=== PATIENT | male | born 1975 ===

== ENCOUNTER 2017-10-24 06:51 | Emergency (ER) | payer MEDICAID, OTHER, SELFPAY ==
[2017-10-24 06:52] VITALS: BMI 34.4
--- NOTE | 2017-10-24 08:02 | C.PDOC ---
History Of Present Illness 42 year old male patient presents to the ER with c/o 'cyst' on his medial left upper thigh for 2 days. Patient states he tried popping it and pus came out, but now hard with no drainage. Patient denies chest pain, SOB and fever. c/o firm non tender vein in back of left calf s/p injury to area recently. Time Seen by Provider: 10/24/17 07:23 Chief Complaint (Nursing): Abnormal Skin Integrity History Per: Patient History/Exam Limitations: no limitations Onset/Duration Of Symptoms: Days (x2) Current Symptoms Are (Timing): Still Present Location Of Injury: Left: Thigh (medial upper) Past Medical History Reviewed: Historical Data, Nursing Documentation, Vital Signs Vital Signs: Last Vital Signs Temp 98.6 F 10/24/17 08:42 Pulse 60 10/24/17 08:42 Resp 18 10/24/17 08:42 BP 127/80 10/24/17 08:42 Pulse Ox 98 10/26/17 08:13 - [facility] Procedures APPLICATION OF SPLINT (09/09/13) CLOSURE SKIN & SUBCUTANEOUS NEC (03/10/13) TETANUS TOXOID ADMINIST (07/15/13) Family History: States: No Known Family Hx - Social History Hx Tobacco Use: No Hx Alcohol Use: No Hx Substance Use: Yes - Immunization History Hx Tetanus Toxoid Vaccination: Yes Hx Influenza Vaccination: No Hx Pneumococcal Vaccination: No Review Of Systems Constitutional: Negative for: Fever Cardiovascular: Negative for: Chest Pain Respiratory: Negative for: Shortness of Breath Skin: Positive for: Other (cyst on left upper medial thigh) Physical Exam - Physical Exam Appears: Non-toxic, No Acute Distress Skin: Warm, Dry, Other (1 cm firm, tender, non fluctuant mass to left upper medial thigh, no drainage, minimal surroumding erythema. ) Head: Atraumatic, Normacephalic Eye(s): bilateral: PERRL, EOMI Oral Mucosa: Moist Cardiovascular: Rhythm Regular, No Murmur Respiratory: Normal Breath Sounds, No Rales, No Rhonchi, No Wheezing Extremity: Normal ROM, No Tenderness, No Pedal Edema (firm vein about 3 cm in left posterior upper calf, non tender, no surrounding swelling or warmth. neg homans sign, no calf tenderness. ), Other Pulses: Left Dorsalis Pedis: Normal, Right Dorsalis Pedis: Normal Neurological/Psych: Oriented x3, Normal Speech, Normal Cognition ED Course And Treatment O2 Sat by Pulse Oximetry: 98 (RA) Pulse Ox Interpretation: Normal Medical Decision Making Medical Decision Making: Impression: cyst on medial left upper thigh Reassess: Patient is resting comfortably. Patient is instructed to put a warm wash cloth and warm water on the cyst 4x a day. Patient is advised to come back if condition worsen. Disposition Counseled Patient/Family Regarding: Diagnosis, Need For Followup, Rx Given - Disposition Disposition: HOME/ ROUTINE Disposition Time: 08:03 Condition: GOOD Additional Instructions: Please take antibiotics prescribed. If diarrhea, develops, recommend taking a probiotic over the counter. Apply warm compresses to area on thigh 4 times a day and to vein on back of left calf. Follow up with yur primary care doctor in the next few days. Return right away to ER for any chest pain, shortness of breath, swelling in legs, softness to area on thigh if not draining on its own for incision or any other concerning symptoms. Prescriptions: Cephalexin [cephalexin] 500 mg PO QID #28 cap Sulfamethoxazole/Trimethoprim [Bactrim DS 800 mg-160 mg] 1 tab PO BID #20 tab Instructions: Skin Abscess, Superficial Phlebitis Forms: [facility] (Mohawk), General Discharge Instructions - Clinical Impression Clinical Impression: Abscess of left thigh, Phlebitis - PA / SIGNAL TESTER / Resident Statement MD/ has reviewed & agrees with the documentation as recorded. - Scribe Statement The provider has reviewed the documentation as recorded by the Noé Priest Do All medical record entries made by the Scribe were at my direction and personally dictated by me. I have reviewed the chart and agree that the record accurately reflects my personal performance of the history, physical exam, medical decision making, and the department course for this patient. I have also personally directed, reviewed, and agree with the discharge instructions and disposition.
[2017-10-24 08:43] VITALS: BP 127/80; PULSE 60; RESP 18; TEMP 98.6
[2017-10-26 08:13] VITALS: O2SAT 98
== END 2017-10-24 08:42 | disposition home or self-care (01) ==
LOC: C.ER 06:51
DX: L02.416 Cutaneous abscess of left lower limb (principal); I80.8 Phlebitis and thrombophlebitis of other sites

== ENCOUNTER 2018-01-17 08:18 | Emergency (ER) | payer OTHER ==
[2018-01-17 08:18] VITALS: BMI 34.4
[2018-01-17] MEDS ORDERED: Naproxen 550 mg Tab PO STA (09:55)
--- NOTE | 2018-01-17 09:57 | C.PDOC ---
History Of Present Illness 42 year old male presents to the ED for evaluation of left shoulder, left elbow and left knee pain which began after he tripped and fell down stairs last night. Patient states he may have hit his head, but denies loss of consciousness, headache, dizziness, nausea and vomiting. Patient states he is up-to-date with Tetanus immunization which he received two years ago. Time Seen by Provider: 01/17/18 09:02 Chief Complaint (Nursing): Lower Extremity Problem/Injury History Per: Patient History/Exam Limitations: no limitations Onset/Duration Of Symptoms: Hrs Current Symptoms Are (Timing): Still Present Additional History Per: Patient Past Medical History Reviewed: Historical Data, Nursing Documentation, Vital Signs Vital Signs: Last Vital Signs Temp 98.7 F 01/17/18 08:28 Pulse 89 01/17/18 08:28 Resp 18 01/17/18 08:28 BP 131/94 H 01/17/18 08:28 Pulse Ox 100 01/17/18 08:28 - Medical History PMH: No Chronic Diseases Surgical History: No Surg Hx - [facility] Procedures APPLICATION OF SPLINT (09/09/13) CLOSURE SKIN & SUBCUTANEOUS NEC (03/10/13) TETANUS TOXOID ADMINIST (07/15/13) Family History: States: Unknown Family Hx - Social History Hx Tobacco Use: No Hx Alcohol Use: No Hx Substance Use: Yes (denies) - Immunization History Hx Tetanus Toxoid Vaccination: Yes Hx Influenza Vaccination: No Hx Pneumococcal Vaccination: No Review Of Systems Gastrointestinal: Negative for: Nausea, Vomiting Musculoskeletal: Positive for: Shoulder Pain (left), Other (left elblow pain, left knee pain ) Neurological: Negative for: Headache, Dizziness, Other (LOC ) Physical Exam - Physical Exam Appears: Non-toxic, No Acute Distress Skin: Warm, Dry, Ecchymosis (to left lateral elbow ), Other (abrasion to left posterior shoulder and left knee ) Head: Atraumatic, Normacephalic Eye(s): bilateral: Normal Inspection Oral Mucosa: Moist Neck: Supple Chest: Symmetrical, No Deformity, No Tenderness Cardiovascular: Rhythm Regular, No Murmur Respiratory: Normal Breath Sounds, No Rales, No Rhonchi, No Wheezing Extremity: Tenderness (over left posterior shoulder, left knee and left lateral elbow with palpation ), Capillary Refill (less than 2 seconds), No Deformity, Swelling (mild, to left elbow ) Pulses: Left Radial: Normal, Right Radial: Normal Neurological/Psych: Oriented x3, Normal Speech, Normal Cognition ED Course And Treatment O2 Sat by Pulse Oximetry: 100 (on RA) Pulse Ox Interpretation: Normal - Other Rad shoulder XR X-Ray: Viewed By Pr, Read By Radiologist Interpretation: Date of service: 01/17/2018. PROCEDURE: Radiographs of the Left Shoulder. HISTORY: left shoulder pain after fall. COMPARISON: No prior. FINDINGS: BONES: Normal. No fracture. JOINTS: Normal. Glenohumeral and acromioclavicular joints preserved. No osteoarthritis. SOFT TISSUES: Normal. OTHER FINDINGS: None. IMPRESSION: No acute findings related to/accounting for the clinical presentation. . Concordant results with the preliminary interpretation rendered by the emergency department physicianKACIE at the conclusion of the procedure. knee XR X-Ray: Viewed By Me, Read By Radiologist Interpretation: PROCEDURE: Left Knee Radiographs. HISTORY: Pain. COMPARISON: None. FINDINGS: BONES: Normal. No fracture. JOINTS: Normal. No osteoarthritis. JOINT EFFUSION: None. OTHER FINDINGS: None. IMPRESSION: No acute findings related to/accounting for the clinical presentation. elbow XR X-Ray: Viewed By Me, Read By Radiologist Interpretation: 01/17/2018. PROCEDURE: Radiographs of the left elbow. HISTORY: left elbow pain after fall. COMPARISON: No prior. FINDINGS: BONES: Normal. No fracture. JOINTS: Normal. No osteoarthritis. SOFT TISSUES: Normal. JOINT EFFUSION: None. OTHER FINDINGS: None. IMPRESSION: No acute findings related to/accounting for the clinical presentation. Progress Note: Left knee XR, Left elbow XR, and left shoulder XR ordered and reviewed. All results are unremarkable. Naproxen PO and Flexeril PO given. On reassessment, patient is resting comfortably, showing no signs of distress and reports an improvement in his symptoms. Patient is stable for discharge with Rx for Naproxen and Flexeril and is advisd to follow up with his PMD within 1-2 days for further evaluation. Disposition Counseled Patient/Family Regarding: Studies Performed, Diagnosis, Need For Followup, Rx Given - Disposition Referrals: [facility] [Outside] Disposition: HOME/ ROUTINE Disposition Time: 10:15 Condition: STABLE Additional Instructions: FOLLOW UP WITH YOUR DOCTOR/CLINIC IN 1-2 DAYS USE MEDICATIONS NEEDED RETURN TO ER IF SYMPTOMS WORSEN Prescriptions: Cyclobenzaprine [Flexeril] 10 mg PO BID PRN #15 tab PRN Reason: Muscle Spasm Naproxen 375 mg PO BID PRN #20 tablet PRN Reason: pain Instructions: Contusion (DC), Knee Sprain (DC), Shoulder Sprain (DC), Elbow Sprain (DC) Forms: [facility] (Burmese) Print Language: TURKISH - POA Present On Arrival: Falls Or Trauma - Clinical Impression Clinical Impression: Left knee sprain, Sprain of left elbow, Sprain of left shoulder, Bruise, Abrasions of multiple sites - Scribe Statement The provider has reviewed the documentation as recorded by the Scribe (Shelly Padron) Provider Attestation: All medical record entries made by the Scribe were at my direction and personally dictated by me. I have reviewed the chart and agree that the record accurately reflects my personal performance of the history, physical exam, medical decision making, and the department course for this patient. I have also personally directed, reviewed, and agree with the discharge instructions and disposition.
[2018-01-17] MEDS ORDERED: Naproxen 550 mg Tab PO ONE (10:02)
[2018-01-17 10:18] VITALS: BP 131/73; PULSE 69; RESP 20; TEMP 98
[2018-01-17 10:59] VITALS: O2SAT 100
--- NOTE | 2018-01-17 14:34 | RAD ---
Date of service: 01/17/2018 PROCEDURE: Radiographs of the Left Shoulder HISTORY: left shoulder pain after fall COMPARISON: No prior. FINDINGS: BONES: Normal. No fracture. JOINTS: Normal. Glenohumeral and acromioclavicular joints preserved. No osteoarthritis. SOFT TISSUES: Normal. OTHER FINDINGS: None. IMPRESSION: No acute findings related to/accounting for the clinical presentation. Concordant results with the preliminary interpretation rendered by the emergency department physician procedure.
--- NOTE | 2018-01-17 14:35 | RAD ---
Date of service: 01/17/2018 PROCEDURE: Left Knee Radiographs. HISTORY: Pain. COMPARISON: None. FINDINGS: BONES: Normal. No fracture. JOINTS: Normal. No osteoarthritis. JOINT EFFUSION: None. OTHER FINDINGS: None. IMPRESSION: No acute findings related to/accounting for the clinical presentation. Concordant results with the preliminary interpretation rendered by the emergency department physician procedure.
--- NOTE | 2018-01-17 14:35 | RAD ---
Date of service: 01/17/2018 PROCEDURE: Radiographs of the left elbow. HISTORY: left elbow pain after fall COMPARISON: No prior. FINDINGS: BONES: Normal. No fracture. JOINTS: Normal. No osteoarthritis. SOFT TISSUES: Normal. JOINT EFFUSION: None. OTHER FINDINGS: None IMPRESSION: No acute findings related to/accounting for the clinical presentation. Concordant results with the preliminary interpretation rendered by the emergency department physician procedure.
== END 2018-01-17 10:17 | disposition home or self-care (01) ==
LOC: C.ER 08:18
DX: S83.92XA Sprain of unspecified site of left knee, initial encounter (principal); S53.402A Unspecified sprain of left elbow, initial encounter; S43.402A Unspecified sprain of left shoulder joint, initial encounter; S40.212A Abrasion of left shoulder, initial encounter; S80.212A Abrasion, left knee, initial encounter; S50.02XA Contusion of left elbow, initial encounter; W10.9XXA Fall (on) (from) unspecified stairs and steps, initial encounter; Y92.9 Unspecified place or not applicable

== ENCOUNTER 2018-04-10 08:35 | Emergency (ER) | payer OTHER ==
[2018-04-10 08:35] VITALS: BMI 34.4
--- NOTE | 2018-04-10 09:03 | C.PDOC ---
Time Seen by Provider: 04/10/18 09:00 Chief Complaint (Nursing): Upper Extremity Problem/Injury Past Medical History Reviewed: Historical Data, Nursing Documentation, Vital Signs Vital Signs: Last Vital Signs Temp 98.4 F 04/10/18 08:52 Pulse 67 04/10/18 08:52 Resp 18 04/10/18 08:52 BP 118/80 04/10/18 08:52 Pulse Ox 97 04/10/18 08:52 - [facility] Procedures APPLICATION OF SPLINT (09/09/13) CLOSURE SKIN & SUBCUTANEOUS NEC (03/10/13) TETANUS TOXOID ADMINIST (07/15/13) Family History: States: Unknown Family Hx - Social History Hx Tobacco Use: No Hx Alcohol Use: No Hx Substance Use: Yes (denies) - Immunization History Hx Tetanus Toxoid Vaccination: Yes Hx Influenza Vaccination: No Hx Pneumococcal Vaccination: No Review Of Systems Respiratory: Positive for: Cough, Wheezing. Negative for: Shortness of Breath Gastrointestinal: Positive for: Abdominal Pain. Negative for: Nausea, Vomiting, Diarrhea, Constipation Musculoskeletal: Negative for: Back Pain, Leg Pain, Foot Pain Neurological: Negative for: Headache, Dizziness Physical Exam - Physical Exam Appears: Well, Non-toxic, No Acute Distress Skin: Normal Color, Warm, Dry Head: Atraumatic, Normacephalic, No Tenderness Eye(s): bilateral: Normal Inspection, PERRL Ear(s): Bilateral: TM Obscured By Wax Nose: Flaring Oral Mucosa: Moist Throat: No Erythema Neck: Normal ROM, Supple Lymphatic: No Adenopathy Chest: Symmetrical Cardiovascular: Rhythm Regular Respiratory: Wheezing Gastrointestinal/Abdominal: Bowel Sounds, Soft, No Tenderness Back: No CVA Tenderness Extremity: Pedal Edema (bilateral), No Calf Tenderness Neurological/Psych: Oriented x3, Normal Speech, Normal Cognition, Normal Sensation ED Course And Treatment O2 Sat by Pulse Oximetry: 97 Disposition - Disposition - PA / CHILDCARE WORKER / Resident Statement /DO has reviewed & agrees with the documentation as recorded.
--- NOTE | 2018-04-10 10:52 | RAD ---
PROCEDURE: Radiographs of the Left Shoulder HISTORY: Pain s/p injury due to slip and fall today COMPARISON: Left shoulder radiographs performed 01/17/18 FINDINGS: BONES: No acute displaced fracture. The distal clavicle and underlying ribs appear intact. JOINTS: No acute dislocation. SOFT TISSUES: Soft tissues appear unremarkable. No evidence of radiopaque foreign body. IMPRESSION: No acute displaced fracture or dislocation evident. If symptoms persist or if there is continued clinical concern, x-ray follow-up in 7-10 days should be considered.
--- NOTE | 2018-04-10 11:01 | C.PDOC ---
History Of Present Illness Pt slipped and fell in the shower this morning, landing on his left shoulder. C/o isolated left shoulder pain. Denies head injury. Time Seen by Provider: 04/10/18 09:00 Chief Complaint (Nursing): Upper Extremity Problem/Injury History Per: Patient Onset/Duration Of Symptoms: Hrs (this morning) Current Symptoms Are (Timing): Still Present Quality: "Pain" Severity: Moderate Exacerbating Factor(s): Movement Additional History Per: Prior Records Past Medical History Reviewed: Historical Data, Nursing Documentation, Vital Signs Vital Signs: Last Vital Signs Temp 98.4 F 04/10/18 08:52 Pulse 67 04/10/18 08:52 Resp 18 04/10/18 08:52 BP 118/80 04/10/18 08:52 Pulse Ox 97 04/10/18 09:22 - Medical History PMH: No Chronic Diseases - [facility] Procedures APPLICATION OF SPLINT (09/09/13) CLOSURE SKIN & SUBCUTANEOUS NEC (03/10/13) TETANUS TOXOID ADMINIST (07/15/13) Family History: States: Unknown Family Hx - Social History Hx Tobacco Use: No Hx Alcohol Use: No Hx Substance Use: Yes (denies) - Immunization History Hx Tetanus Toxoid Vaccination: Yes Hx Influenza Vaccination: No Hx Pneumococcal Vaccination: No Review Of Systems Except As Marked, All Systems Reviewed And Found Negative. Constitutional: Negative for: Fever, Weakness Cardiovascular: Negative for: Chest Pain Respiratory: Negative for: Shortness of Breath Gastrointestinal: Negative for: Abdominal Pain Musculoskeletal: Positive for: Shoulder Pain (left). Negative for: Neck Pain, Back Pain, Hand Pain, Leg Pain Neurological: Negative for: Weakness, Numbness, Headache Physical Exam - Physical Exam Appears: Non-toxic, No Acute Distress Skin: Normal Color, Warm, Dry, No Rash Head: Atraumatic, Normacephalic Eye(s): bilateral: Normal Inspection, PERRL, EOMI Neck: Normal ROM, No Midline Cervical Tenderness, No Step Off Deformity, Supple Chest: Symmetrical, No Deformity Cardiovascular: Rhythm Regular Respiratory: Normal Breath Sounds, No Accessory Muscle Use Back: No CVA Tenderness, No Vertebral Tenderness Extremity: Tenderness (left shoulder area), Capillary Refill (wnl), No Deformity, No Swelling Extremity: Bilateral: Normal Color And Temperature Pulses: Left Radial: Normal Neurological/Psych: Oriented x3, Normal Motor, Normal Sensation ED Course And Treatment O2 Sat by Pulse Oximetry: 97 Pulse Ox Interpretation: Normal - Other Rad Left shoulder x-rays X-Ray: Viewed By Me, Read By Radiologist Interpretation: IMPRESSION: No acute displaced fracture or dislocation evident. Progress Note: Pt was placed in a left arm sling. Reassessment Condition: Improved Disposition Counseled Patient/Family Regarding: Studies Performed, Diagnosis, Need For Followup, Rx Given - Disposition Referrals: Manish Mueller MD [Staff Provider] - [facility] [Outside] Disposition: HOME/ ROUTINE Disposition Time: 11:03 Condition: STABLE Additional Instructions: Use sling as instructed. Follow up with an web marketing specialist for further evaluation and treatment. Return to the ER if you develop worsening of symptoms or if you have any other concerns. Prescriptions: Naproxen [Naprosyn] 1 tab PO BID PRN #25 tab PRN Reason: Pain Instructions: Shoulder Sprain (DC), How to Use a Shoulder Sling Forms: [facility] (Maldivian) - Clinical Impression Clinical Impression: Contusion of left shoulder
[2018-04-10 11:22] VITALS: BP 129/78; PULSE 72; RESP 20; TEMP 98.1; O2SAT 99
== END 2018-04-10 11:22 | disposition home or self-care (01) ==
LOC: C.ER 08:35
DX: S40.012A Contusion of left shoulder, initial encounter (principal); W18.2XXA Fall in (into) shower or empty bathtub, initial encounter; Y93.E1 Activity, personal bathing and showering
CPT/HCPCS: 73030; 96372; 99285; J1885